=== PATIENT | female | born 1995 | race Caucasian/White ===

== ENCOUNTER 2016-12-03 16:49 | Emergency (ER) | payer BC ==
[~2016-12-03] VITALS: Ht 160 cm; Wt 105.0 kg
[2016-12-03 16:50] VITALS: BP 122/63; PULSE 69; RESP 16; TEMP 97.9; O2SAT 100
[2016-12-03 22:26] LABS: AUTOMATED NEUTROPHIL # 4.2 TH/MM3 (1.8-7.7); BASOPHIL % 0.3 % (0.0-2.0); EOSINOPHIL # 0.1 TH/MM3 (0-0.4); EOSINOPHIL % 1.8 % (0.0-4.0); HEMATOCRIT 41.4 % (35.0-46.0); HEMO FLAGS DIFF FINAL; LYMPH % 32.6 % (9.0-44.0); LYMPHOCYTE # 2.6 TH/MM3 (1.0-4.8); MEAN CELL VOLUME 86.7 FL (80.0-100.0); MEAN CORPUSCULAR HEMOGLOBIN 28.5 PG (27.0-34.0); MEAN CORPUSCULAR HGB CONC 32.9 % (32.0-36.0); MONO % 12.2 % (0.0-8.0); NEUT % 53.1 % (16.0-70.0); PLATELET COUNT 256 TH/MM3 (150-450); RED BLOOD COUNT 4.78 MIL/MM3 (4.00-5.30); RED CELL DISTRIBUTION WIDTH 13.6 % (11.6-17.2)
[2016-12-03 22:43] VITALS: BP 112/68; PULSE 62; RESP 16; O2SAT 100
[2016-12-03 22:43] LABS: ANION GAP 5 MEQ/L (5-15); AST (GOT) 25 U/L (16-38); BICARBONATE 30.1 MEQ/L (21.0-32.0); BLOOD UREA NITROGEN 11 MG/DL (7-18); CHLORIDE 104 MEQ/L (98-107); GLOMERULAR FILTRATION RATE 89 ML/MIN (>89); POTASSIUM 4.3 MEQ/L (3.5-5.1); SODIUM (NA) 139 MEQ/L (136-145)
[2016-12-03 22:46] LABS: ALKALINE PHOSPHATASE 46 U/L (45-117); ALT (GPT) 33 U/L (9-42); TOTAL BILIRUBIN ADULT 0.4 MG/DL (0.2-1.0)
[2016-12-03 23:07] LABS: BLOOD, URINE NEG (NEG); COMMENT (UR) CULT NOT INDICATED; CULTURE IF INDICATED CULT NOT INDICATED; GLUCOSE,URINE NEG (NEG); KETONE, URINE 10 mg/dL (NEG); MUCUS URINE FEW /lpf (OCC); NITRITE,URINE NEG (NEG); PH, URINE 5.5 (5.0-8.5); SQUAMOUS EPITHELIAL CELL URINE 2 /hpf (0-5); URINE COLOR YELLOW (YELLW/STRAW)
[2016-12-03] MEDS ORDERED: ALUMINUM/MAGNESIUM/SIMETH 30 ML CUP PO ONE (23:15)
[2016-12-03] MEDS ORDERED: LIDOCAINE VISCOUS 2% SOLN 15 ML UDC PO ONE (23:15)
[2016-12-03] MEDS ORDERED: ONDANSETRON ODT 4 MG TAB PO ONE (23:15)
--- NOTE | 2016-12-04 00:01 | PD ---
HPI Chief Complaint: Abdominal Pain Time Seen by Provider: 22:57 Travel History International Travel<30 days: No Contact w/Intl Traveler<30days: No Traveled to known affect area: No History of Present Illness HPI 21yo F with c/o epigastric abdominal pain for 1 month. States it is intermittent and nonradiating. Feels like contractions. Denies any fever, chest pain, sob, n/v, diarrhea, urinary complaints, vaginal bleeding or discharge. Pt sometimes takes ibuprofen but did not take it today. PFSH Past Medical History Medical other: Yes (SLEEP APNEA/INSOMNIA) Immunizations Current: Yes Tetanus Vaccination: > 5 Years Influenza Vaccination: No ?: Unknown LMP: 11/24/16 : 0 Social History Alcohol Use: No Tobacco Use: No Substance Use: Yes (MARIJUANA RARE) Allergies-Medications (Allergen,Severity, Reaction): Coded Allergies: No Known Allergies (Unverified , 12/03/16) Reported Meds & Prescriptions Reported Meds & Active Scripts Active No Active Prescriptions or Reported Medications Review of Systems Except as stated in HPI: all other systems reviewed are Neg Physical Exam Narrative GENERAL: 21yo F not in distress. SKIN: Focused skin assessment warm/dry. HEAD: Atraumatic. Normocephalic. CARDIOVASCULAR: Regular rate and rhythm. No murmur appreciated. RESPIRATORY: No accessory muscle use. Clear to auscultation. Breath sounds equal bilaterally. GASTROINTESTINAL: Abdomen soft, non-tender, nondistended. No rebound tenderness or guarding. BACK: No CVA tenderness bilaterally. MUSCULOSKELETAL: No obvious deformities. No clubbing. No cyanosis. No edema. NEUROLOGICAL: Awake and alert. No obvious cranial nerve deficits. Motor grossly within normal limits. Normal speech. PSYCHIATRIC: Appropriate mood and affect; insight and judgment normal. Data Data Last Documented VS Vital Signs Date Time Temp Pulse Resp B/P Pulse Ox O2 Delivery O2 Flow Rate FiO2 12/03/16 22:43 62 16 112/68 100 Room Air 12/03/16 16:50 97.9 Orders Complete Blood Count With Diff (12/03/16 21:04) Comprehensive Metabolic Panel (12/03/16 21:04) Urinalysis - C+S If Indicated (12/03/16 21:04) Lipase (12/03/16 21:04) Ed Urine Pregnancytest Poc (12/03/16 23:01) Al-Mag Hy-Si 40-40-4 Mg/Ml Liq (Mag-Al P (12/03/16 23:15) Lidocaine 2% Viscous (Xylocaine 2% Visco (12/03/16 23:15) Ondansetron Odt (Zofran Odt) (12/03/16 23:15) Labs Laboratory Tests Test 12/03/16 12/03/16 21:50 22:17 White Blood Count 8.0 TH/MM3 Red Blood Count 4.78 MIL/MM3 Hemoglobin 13.6 GM/DL Hematocrit 41.4 % Mean Corpuscular Volume 86.7 FL Mean Corpuscular Hemoglobin 28.5 PG Mean Corpuscular Hemoglobin 32.9 % Concent Red Cell Distribution Width 13.6 % Platelet Count 256 TH/MM3 Mean Platelet Volume 8.6 FL Neutrophils (%) (Auto) 53.1 % Lymphocytes (%) (Auto) 32.6 % Monocytes (%) (Auto) 12.2 % Eosinophils (%) (Auto) 1.8 % Basophils (%) (Auto) 0.3 % Neutrophils # (Auto) 4.2 TH/MM3 Lymphocytes # (Auto) 2.6 TH/MM3 Monocytes # (Auto) 1.0 TH/MM3 Eosinophils # (Auto) 0.1 TH/MM3 Basophils # (Auto) 0.0 TH/MM3 CBC Comment DIFF FINAL Differential Comment Sodium Level 139 MEQ/L Potassium Level 4.3 MEQ/L Chloride Level 104 MEQ/L Carbon Dioxide Level 30.1 MEQ/L Anion Gap 5 MEQ/L Blood Urea Nitrogen 11 MG/DL Creatinine 0.82 MG/DL Estimat Glomerular Filtration 89 ML/MIN Rate Random Glucose 93 MG/DL Calcium Level 9.2 MG/DL Total Bilirubin 0.4 MG/DL Aspartate Amino Transf 25 U/L (AST/SGOT) Alanine Aminotransferase 33 U/L (ALT/SGPT) Alkaline Phosphatase 46 U/L Total Protein 7.5 GM/DL Albumin 3.8 GM/DL Lipase 83 U/L Urine Color YELLOW Urine Turbidity CLEAR Urine pH 5.5 Urine Specific [place] 1.021 Urine Protein NEG mg/dL Urine Glucose (UA) NEG mg/dL Urine Ketones 10 mg/dL Urine Occult Blood NEG Urine Nitrite NEG Urine Bilirubin NEG Urine Urobilinogen LESS THAN 2.0 MG/DL Urine Leukocyte Esterase NEG Urine RBC LESS THAN 1 /hpf Urine WBC 1 /hpf Urine Squamous Epithelial 2 /hpf Cells Urine Mucus FEW /lpf Microscopic Urinalysis Comment CULT NOT INDICATED MDM Medical Decision Making Medical Screen Exam Complete: Yes Emergency Medical Condition: Yes Interpretation(s) Laboratory Tests Test 12/03/16 12/03/16 21:50 22:17 White Blood Count 8.0 TH/MM3 (4.0-11.0) Red Blood Count 4.78 MIL/MM3 (4.00-5.30) Hemoglobin 13.6 GM/DL (11.6-15.3) Hematocrit 41.4 % (35.0-46.0) Mean Corpuscular Volume 86.7 FL (80.0-100.0) Mean Corpuscular Hemoglobin 28.5 PG (27.0-34.0) Mean Corpuscular Hemoglobin 32.9 % Concent (32.0-36.0) Red Cell Distribution Width 13.6 % (11.6-17.2) Platelet Count 256 TH/MM3 (150-450) Mean Platelet Volume 8.6 FL (7.0-11.0) Neutrophils (%) (Auto) 53.1 % (16.0-70.0) Lymphocytes (%) (Auto) 32.6 % (9.0-44.0) Monocytes (%) (Auto) 12.2 % (0.0-8.0) Eosinophils (%) (Auto) 1.8 % (0.0-4.0) Basophils (%) (Auto) 0.3 % (0.0-2.0) Neutrophils # (Auto) 4.2 TH/MM3 (1.8-7.7) Lymphocytes # (Auto) 2.6 TH/MM3 (1.0-4.8) Monocytes # (Auto) 1.0 TH/MM3 (0-0.9) Eosinophils # (Auto) 0.1 TH/MM3 (0-0.4) Basophils # (Auto) 0.0 TH/MM3 (0-0.2) CBC Comment DIFF FINAL Differential Comment Sodium Level 139 MEQ/L (136-145) Potassium Level 4.3 MEQ/L (3.5-5.1) Chloride Level 104 MEQ/L (98-107) Carbon Dioxide Level 30.1 MEQ/L (21.0-32.0) Anion Gap 5 MEQ/L (5-15) Blood Urea Nitrogen 11 MG/DL (7-18) Creatinine 0.82 MG/DL (0.50-1.00) Estimat Glomerular Filtration 89 ML/MIN (>89) Rate Random Glucose 93 MG/DL (74-106) Calcium Level 9.2 MG/DL (8.5-10.1) Total Bilirubin 0.4 MG/DL (0.2-1.0) Aspartate Amino Transf 25 U/L (16-38) (AST/SGOT) Alanine Aminotransferase 33 U/L (9-42) (ALT/SGPT) Alkaline Phosphatase 46 U/L (45-117) Total Protein 7.5 GM/DL (6.4-8.2) Albumin 3.8 GM/DL (3.4-5.0) Lipase 83 U/L (73-393) Urine Color YELLOW (YELLW/STRAW) Urine Turbidity CLEAR (CLEAR) Urine pH 5.5 (5.0-8.5) Urine Specific [place] 1.021 (1.002-1.035) Urine Protein NEG mg/dL (NEG-TRACE) Urine Glucose (UA) NEG mg/dL (NEG) Urine Ketones 10 mg/dL (NEG) Urine Occult Blood NEG (NEG) Urine Nitrite NEG (NEG) Urine Bilirubin NEG (NEG) Urine Urobilinogen LESS THAN 2.0 MG/DL (LESS THAN 2.0) Urine Leukocyte Esterase NEG (NEG) Urine RBC LESS THAN 1 /hpf (0-3) Urine WBC 1 /hpf (0-5) Urine Squamous Epithelial 2 /hpf (0-5) Cells Urine Mucus FEW /lpf (OCC) Microscopic Urinalysis Comment CULT NOT INDICATED Differential Diagnosis Gastritis vs. peptic ulcer disease vs. pancreatitis Narrative Course 21yo F well appearing with intermittent epigastric abdominal pain for 1 month. Labs reviewed, no leukocytosis. CMP unremarkable. Lipase normal. UA showed no leukocyte. Negative nitrite. Urine negative. Abdominal exam unremarkable. Will give GI cocktail and reevaluate. VS stable. Pt reevaluated at bedside and pain has resolved. Return precautions given. Diagnosis Primary Impression: Abdominal pain Qualified Code: R10.13 - Epigastric pain Patient Instructions: General Instructions Departure Forms: Tests/Procedures Additional Instructions: Please follow up with your PMD in 3-7 days. Return to the ED if symptoms worsen. Med/Other Pt SpecificInfo: Prescription(s) given Scripts Omeprazole 40 Mg Cap40 Mg PO DAILY 7 Days Ref 0 Prov:Tete Jacob DO 12/04/16 Disposition: 01 DISCHARGE HOME Condition: Stable Tete Jacob DO Dec 04, 2016 00:01
[2016-12-04] MEDS ORDERED: OMEP40CA2 PO (00:47)
== END 2016-12-04 01:13 | disposition home or self-care (01) ==
LOC: NEPE 16:49
DX: R10.13 Epigastric pain (principal); G47.30 Sleep apnea, unspecified
CPT/HCPCS: 80053; 81001; 83690; 84703; 85025; 99284

== ENCOUNTER 2017-12-27 19:07 | Emergency (ER) | payer BC, OTHER ==
[~2017-12-27 19:07] MED LIST: OMEP40CA2 PO
--- NOTE | 2017-12-27 20:10 | PD ---
HPI Chief Complaint abdominal pain Date Seen: Dec 27, 2017 Time Seen: 20:04 Travel History International Travel<30 Days: No Contact w/Intl Traveler<30Days: No Known Affected Area: No History of Present Illness HPI pt. is a 22 @ 17 1/7 weeks w/ c/o lower abdominal pain. pt. states pain is dull and began ~ 1100 and persisted thruout the day. pt. states took tylenol w/ some relief. pt. w/ some morning sickness, but no other n/v, nl bm, voiding w/o diff, no fever chills, no vb/lof, no cramping. Weeks Gestation: 17 Para: 0 : 1 Last Menstrual Period: Dec 27, 2017 History Past Medical History Medical History: Denies Significant Hx Obstetric History Obstetric History Past Surgical History Surgical History: No Previous Surgery Family History Family History: Negative Social History Alcohol Use: No Tobacco Use: No Substance Abuse: Yes (+ marijuana) Allergies-Medications (Allergen,Severity, Reaction): Coded Allergies: No Known Allergies (Unverified , 12/03/16) Home Meds Active Scripts Omeprazole (Omeprazole) 40 Mg Cap, 40 MG PO DAILY for 7 Days, CAP 0 Refills Prov:Tete Jacob DO 12/04/16 Review of Systems Except as stated in HPI: all other systems reviewed are Neg Physical Exam Narrative GENERAL: Well-nourished, well-developed patient. SKIN: Warm and dry. HEAD: Normocephalic and atraumatic. EYES: No scleral icterus. No injection or drainage. ENT: No nasal drainage noted. Mucous membranes pink. Airway patent. NECK: Supple, trachea midline. No JVD. CARDIOVASCULAR: Regular rate and rhythm without murmurs, gallops, or rubs. RESPIRATORY: Breath sounds equal bilaterally. No accessory muscle use. BREASTS: Bilateral exam showed no masses , no retractions, no nipple discharge. ABDOMEN/GI: Abdomen soft, non-tender, bowel sounds present, no rebound, no guarding Uterine Contractions: none FHT's: + EXTREMITIES: No cyanosis or edema. BACK: Nontender without obvious deformity. No CVA tenderness. NEUROLOGICAL: Awake and alert. Motor and sensory grossly within normal limits. Five out of 5 muscle strength in all muscle groups. Normal speech. Data Data Vital Signs Reviewed: Yes Orders Orders Warehouse Associate Clear For Discharge (12/27/17 ) [facility] Medical Record Reviewed: Yes Plan pt. to be d/c to home. 1st visit 01/05, pt. to keep it. condition d/w pt. all ? answered. given precautions for return. Diagnosis Diagnosis: Primary Impression: Abdominal pain during in second trimester Additional Impression: 17 weeks gestation of Disposition: 01 DISCHARGE HOME Patient Instructions: General Instructions Departure Forms: Tests/Procedures Brenden Huynh Jr., MD Dec 27, 2017 20:10
== END 2017-12-27 20:15 | disposition home or self-care (01) ==
LOC: HOBED 19:07
DX: O26.892 Other specified pregnancy related conditions, second trimester (principal); R10.9 Unspecified abdominal pain; Z3A.17 17 weeks gestation of pregnancy
CPT/HCPCS: 99283

== ENCOUNTER → 2018-01-20 | Outpatient (CLI) | payer OTHER | LOC: HPND 08:19 | PROVIDERS: ATTEND Obstetrics & Gynecology | DX: O35.1XX0 Maternal care for (suspected) chromosomal abnormality in fetus, not applicable or unspecified (principal); E66.01 Morbid (severe) obesity due to excess calories; Z68.41 Body mass index [BMI] 40.0-44.9, adult | CPT/HCPCS: 76811 ==

== ENCOUNTER → 2018-02-25 | Outpatient (CLI) | payer OTHER | LOC: HPND 13:01 | PROVIDERS: ATTEND Obstetrics & Gynecology | DX: O35.1XX0 Maternal care for (suspected) chromosomal abnormality in fetus, not applicable or unspecified (principal); O99.212 Obesity complicating pregnancy, second trimester; E66.01 Morbid (severe) obesity due to excess calories; Z68.41 Body mass index [BMI] 40.0-44.9, adult | CPT/HCPCS: 76816 ==

== ENCOUNTER 2018-05-11 23:11 | Inpatient (IN) ==
--- NOTE | 2018-05-11 23:58 | P.HPOB ---
History of Present Illness Primary Care Physician: UNKNOWN Chief Complaint: leaking History of Present Illness: leaking since this evening no contractions no vb +fm PMFSH - Medical History Medical History: Medical History (Last Updated 05/11/18 @ 23:51 by Lois Pabon MD) Patient denies medical problems - Surgical History Surgical History: Surgical History (Last Updated 05/11/18 @ 23:51 by Lois Pabon MD) No history of previous surgery Medications and Allergies Allergies Allergy/AdvReac Type Severity Reaction Status Date / Time No Known Allergies Allergy Uncoded 12/03/16 22:39 Exam Vital signs: Vital Signs 05/11/18 23:38 Temperature 98.9 F Pulse Rate 95 H Respiratory Rate 18 Blood Pressure 146/78 H Narrative: GENERAL: Well-nourished, well-developed patient. SKIN: Warm and dry. HEAD: Normocephalic and atraumatic. EYES: No scleral icterus. No injection or drainage. ENT: No nasal drainage noted. Mucous membranes pink. Airway patent. NECK: Supple, trachea midline. No JVD. CARDIOVASCULAR: Regular rate and rhythm without murmurs, gallops, or rubs. RESPIRATORY: Breath sounds equal bilaterally. No accessory muscle use. BREASTS: Bilateral exam showed no masses , no retractions, no nipple discharge. ABDOMEN/GI: Abdomen soft, non-tender, bowel sounds present, no rebound, no guarding Gravid to - weeks size Fundal Height: - GENITOURINARY: External Genitalia: intact and normal in appearance BUS glands: - Cervix: Dilatation: 70 Effacement: 70 Station: -2 Presentation: [-] Membranes: [intact or ruptured] Uterine Contractions: [-] FHT's: Category: [-] Baseline: [-] Reactive: [-] Variability: [-] Decels: [-] EXTREMITIES: No cyanosis or edema. BACK: Nontender without obvious deformity. No CVA tenderness. NEUROLOGICAL: Awake and alert. Motor and sensory grossly within normal limits. Five out of 5 muscle strength in all muscle groups. Normal speech. Caprini VTE Risk Assessment Caprini VTE Risk Assessment: No/Low Risk (score <= 1) Caprini Risk Assessment Model: Point Value = 1 Point Value = 2 Point Value = 3 Point Value = 5 Age 41-60 Minor surgery BMI > 25 kg/m2 Swollen legs Varicose veins or History of unexplained or recurrent spontaneous Oral contraceptives or hormone replacement Sepsis (< 1 month) Serious lung disease, including pneumonia (< 1 month) Abnormal pulmonary function Acute myocardial infarction Congestive heart failure (< 1 month) History of inflammatory bowel disease Medical patient at bed rest Age 61-74 Arthroscopic surgery Major open surgery (> 45 min) Laparoscopic surgery (> 45 min) Malignancy Confined to bed (> 72 hours) Immobilizing plaster cast Central venous access Age >= 75 History of VTE Family history of VTE Factor V Leiden Prothrombin [id number] Lupus anticoagulant Anticardiolipin antibodies Elevated serum homocysteine Heparin-induced thrombocytopenia Other congenital or acquired thrombophilia Stroke (< 1 month) Elective arthroplasty Hip, pelvis, or leg fracture Acute spinal cord injury (< 1 month) Prophylaxis Regimen: Total Risk Factor Score Risk Level Prophylaxis Regimen 0-1 Low Early ambulation 2 Moderate Order ONE of the following: *Sequential Compression Device (SCD) *Heparin 5000 units SQ BID 3-4 Higher Order ONE of the following medications: *Heparin 5000 units SQ TID *Enoxaparin/Lovenox 40 mg SQ daily (WT < 150 kg, CrCl > 30 mL/min) *Enoxaparin/Lovenox 30 mg SQ daily (WT < 150 kg, CrCl > 10-29 mL/min) *Enoxaparin/Lovenox 30 mg SQ BID (WT < 150 kg, CrCl > 30 mL/min) AND/OR *Sequential Compression Device (SCD) 5 or more Highest Order ONE of the following medications: *Heparin 5000 units SQ TID (Preferred with Epidurals) *Enoxaparin/Lovenox 40 mg SQ daily (WT < 150 kg, CrCl > 30 mL/min) *Enoxaparin/Lovenox 30 mg SQ daily (WT < 150 kg, CrCl > 10-29 mL/min) *Enoxaparin/Lovenox 30 mg SQ BID (WT < 150 kg, CrCl > 30 mL/min) AND *Sequential Compression Device (SCD) Assessment and Plan - Plan IUP @ 37 5/7 weeks PROM - admit for pitocin augmentation EFW [id number] by US weight gain 50lbs on thursday he 5'4" nulliparous I discussed the risk factors for shoulder dystocia with the patient. She verbalizes a through understanding and desires to proceedw tih vaginal delivery.
[2018-05-12] MEDS ORDERED: Sod Chloride 0.9% Inj 1,000 ML IV.CONT PRN
[2018-05-12] MEDS ORDERED: Citric Acid/Sodium Citrate Liq 30 ML UDC PO SCH
[2018-05-12] MEDS ORDERED: Penicillin G Potassium Inj 5,000,000 UNIT in Sodium Chloride 0.9% Inj 100 ML IV.SIG ONE ×2
[2018-05-12] MEDS ORDERED: Oxytocin 30 Units/500ml Premix 30 UNITS/500 ML BAG IV.SIG ONE
[2018-05-12] MEDS ORDERED: fentaNYL Citrate Inj 100 MCG/2 ML Ampul IV.PUSH PRN ×2
[2018-05-12] MEDS ORDERED: Sodium Chlor 0.9% Inj 500 ML IV.SIG PRN
[2018-05-12 01:36] LABS: Baso % (Auto) 0.2 % (0.0-2.0); Eos # (Auto) 0.2 th/mm3 (0.0-0.4); Eos % (Auto) 1.1 % (0.0-4.0); Hematocrit 34.5 % (35.0-46.0); Hemoglobin 11.5 gm/dL (11.6-15.3); Lymph # (Auto) 1.8 th/mm3 (1.0-4.8); Lymph % (Auto) 12.3 % (9.0-44.0); Mean Corpuscular HGB Conc 33.4 % (32.0-36.0); Mean Corpuscular Volume 83.8 fL (80.0-100.0); Mean Platelet Volume 9.4 fL (7.0-11.0); Mono # (Auto) 1.2 th/mm3 (0.0-0.9); Mono % (Auto) 7.9 % (0.0-8.0); Neut # (Auto) 11.8 th/mm3 (1.8-7.7); Neut % (Auto) 78.5 % (16.0-70.0); Platelet Count 315 th/mm3 (150-450); Red Blood Count 4.12 mil/mm3 (4.00-5.30); Red Cell Distribution Width 13.3 % (11.6-17.2)
[2018-05-12 01:46] LABS: Amphetamine Urine With Conf Neg (Neg); Benzodiazepine Urine With Conf Neg (Neg)
[2018-05-12 02:01] LABS: Bilirubin,Urine Negative (Negative); Clarity,Urine Cloudy (Clear); Color,Urine Yellow (Yellw/Straw); Glucose,Urine (UA) Negative (Negative); Leukocyte Esterase,Urine Negative (Negative); Mucus,Urine Moderate /lpf (Occasional); Nitrite,Urine Negative (Negative); Specific Gravity,Urine 1.021 (1.002-1.035); Squamous Epithelial Cell,Urine 12 /hpf (0-5)
[2018-05-12] MEDS: Penicillin G Potassium Inj 2,500,000 UNIT in Sodium Chlor 0.9% Inj 100 ML IV.SIG SCH ×4 (05:30→13:14)
[2018-05-12] MEDS ORDERED: Oxytocin 30 Units/500ml Premix 30 UNITS/500 ML BAG IV.SIG PRN (07:44)
[2018-05-12] MEDS ORDERED: fentaNYL 2MCG-Bupiv 0.125% Epi 150 ML EPIDURAL ONE (08:23)
[2018-05-12] MEDS ORDERED: Lidocaaine 1.5%/Epinephrine 1:200,000 PF Inj 5 ML Amp ONE (08:46)
[2018-05-12] MEDS ORDERED: Lidocaine PF 1% Inj 5 ML Vial ONE (08:46)
[2018-05-12] MEDS ORDERED: fentaNYL Citrate Inj 100 MCG/2 ML Ampul EPIDURAL ONE (11:00)
[2018-05-12] MEDS ORDERED: fentaNYL 2MCG-Bupiv 0.125% Epi 150 ML EPIDURAL PRN (11:00)
[2018-05-12] MEDS ORDERED: Lidocaine PF 1% Inj 30 ML Vial ONE (14:19)
[2018-05-12] MEDS ORDERED: Benzocaine 20% Top Spray 60 ML Can TOPICAL PRN (15:33)
[2018-05-12] MEDS ORDERED: Naloxone Inj 0.4 MG/ML Vial IV.PUSH PRN ×2 (15:33)
[2018-05-12] MEDS ORDERED: Bisacodyl 10 MG Supp RECTAL PRN (15:33)
[2018-05-12] MEDS ORDERED: Oxytocin 30 Units/500ml Premix 30 UNITS/500 ML BAG IV.CONT PRN (15:33)
[2018-05-12] MEDS ORDERED: Zolpidem Tartrate 5 MG Tablet PO PRN (15:33)
--- NOTE | 2018-05-12 15:36 | P.OBDELI ---
Weeks Gestation: 38 Anesthesia: Epidural Episiotomy: none Vaginal Delivery: Normal Presentation: Occiput posterior Nuchal Cord: x1 Delayed Cord Clamping (45 sec): Yes Placenta: Spontaneous delivery Laceration: Perineal, 2 deg Repair: Chromic running, Vicryl running Estimated blood loss (mL): 200 Infant: Female Female A Infant Delivery Date: 05/12/18 Delivery Time: 14:59 Weight: 3.12 kg score (1 min): 8 score (5 min): 9 Additional Information: loose nuchal reduced
[2018-05-12] MEDS ORDERED: Measles/Mumps/Rubella Vaccine Inj 0.5 ML Vial SQ ONE (16:00)
[2018-05-12] MEDS ORDERED: Diphtheria/Tetanus/Pertussis Vaccine Inj 0.5 ML Syringe IM ONE (16:00)
[2018-05-12] MEDS: Senna/Docusate Sodium 8.6/50 MG Tablet PO SCH (20:34)
--- NOTE | 2018-05-13 08:33 | P.PNOB ---
Subjective Interval history: Patient is a 23 year-old delivered at 37 weeks. Patient is day 1 after . AFVSS. Patient's pain is well-controlled. Patient reports eating and drinking without any nausea or vomiting. Patient reports minimal bleeding. Patient has not passed gas and had no bowel movements. Patient is walking without lower extremity pain or shortness of breath. Patient reports desire for contraception and breast-feeding. Objective Vital Signs/I&O: Vital Signs 05/12/18 08:40 05/12/18 08:41 05/12/18 09:00 Temperature Pulse Rate 74 79 Respiratory Rate 18 18 Blood Pressure 132/76 143/92 H 05/12/18 09:06 05/12/18 09:10 05/12/18 09:30 Temperature Pulse Rate 90 82 87 Respiratory Rate 18 18 Blood Pressure 106/89 120/65 05/12/18 09:45 05/12/18 09:46 05/12/18 10:00 Temperature Pulse Rate 84 79 Respiratory Rate 18 18 Blood Pressure 127/60 122/61 05/12/18 10:01 05/12/18 10:16 05/12/18 10:45 Temperature 98.0 F Pulse Rate 129 H 75 Respiratory Rate 18 Blood Pressure 102/60 125/69 05/12/18 10:46 05/12/18 11:16 05/12/18 15:46 Temperature Pulse Rate 73 85 94 H Respiratory Rate Blood Pressure 128/75 136/81 129/74 05/12/18 16:16 05/12/18 16:31 05/12/18 16:46 Temperature Pulse Rate 73 76 74 Respiratory Rate Blood Pressure 133/70 131/73 134/73 Intake & Output 05/12/18 05/13/18 05/13/18 18:59 06:59 18:59 Intake Total 2099 / 2099 Balance 2099 Intake: IV 2099 / 2099 LR 1000 mL Inj 1,000 ML @ 125 2000 / 2000 mls/hr IV.CONT .Q8H [place] Rx#: [id number] Pfizerpen-G Inj 2,500,000 UNIT 100 / 100 In NS Inj 100 ML @ 200 mls/hr IV.SIG Q4H [place] Rx#:[id number] Result Diagrams: 05/12/18 00:50 Objective Remarks: GENERAL: Well-nourished, well-developed patient. CARDIOVASCULAR: Regular rate and rhythm without murmurs, gallops, or rubs. RESPIRATORY: Breath sounds equal bilaterally. No accessory muscle use. ABDOMEN/GI: Abdomen soft, non-tender. Fundus: Firm, non-tender at umbilicus. GENITOURINARY: Light to moderate bleeding. EXTREMITIES: No cyanosis or edema, non-tender, without signs of DVT. Medications and IVs: Active Medications Acetaminophen (Tylenol) 650 mg PO Q4H PRN PRN Reason: PAIN SCALE 1 TO 2 Al Hydroxide/Mg Hydroxide (Milk Of Magnesia Liq) 30 ml PO Q12H PRN PRN Reason: Mild Constipation Benzocaine (Americaine 20% [place]) 1 spray TOPICAL Q4H PRN PRN Reason: For Perineum Discomfort Bisacodyl (Dulcolax Supp) 10 mg RECTAL DAILY PRN PRN Reason: SEVERE CONSITIPATION Ephedrine Sulfate (Ephedrine/Ns Syringe) 10 mg IV.PUSH UNSCH PRN PRN Reason: SEE LABEL COMMENTS Stop: 05/13/18 11:00 Oxytocin (Pitocin 30 Units/Ns 500 Ml Premix) 30 units in 500 mls @ 2 mls/hr IV.SIG TITRATE PRN; Protocol PRN Reason: For induction of labor Last Admin: 05/12/18 08:35 Dose: 2 milliunit/min, 2 mls/hr Fentanyl/Bupivacaine/Sodium Chlor (Fentanyl 2 Mcg-Bupiv 0.125% Epi) 150 mls @ 12 mls/hr EPIDURAL UNSCH PRN PRN Reason: for Labor Pain Last Admin: 05/12/18 13:14 Dose: 12 mls/hr Oxytocin (Pitocin 30 Units/Ns 500 Ml Premix) 30 units in 500 mls @ 100 mls/hr IV.CONT UNSCH PRN PRN Reason: Heavy bleeding Ibuprofen (Motrin) 800 mg PO Q8H PRN PRN Reason: For Cramping Last Admin: 05/13/18 06:15 Dose: 800 mg Lactulose (Lactulose Liq) 30 ml PO DAILY PRN PRN Reason: SEVERE CONSITIPATION Miscellaneous Information (Misc Information) 1 each OTHER UNSCH PRN PRN Reason: SEE LABEL COMMENTS Stop: 05/13/18 11:00 Miscellaneous Information (Misc Information) 1 each OTHER UNSCH PRN PRN Reason: SEE LABEL COMMENTS Stop: 05/13/18 11:00 Naloxone HCl (Narcan Inj) 0.1 mg IV.PUSH Q2M PRN PRN Reason: for opiate reversal Ondansetron HCl (Zofran Odt) 4 mg PO Q6H PRN PRN Reason: NAUSEA OR VOMITING Vit/Calcium/Iron/Folic Ac (Stuartnatal Plus 3) 1 tab PO DAILY [facility] Senna/Docusate Sodium (Izzy-Colace) 1 tab PO BID [facility] Last Admin: 05/12/18 20:34 Dose: 1 tab Sennosides (Senokot) 17.2 mg PO Q12H PRN PRN Reason: Moderate Constipation Sodium Chloride (Ns Flush) 2 ml IV.FLUSH BID [facility] Last Admin: 05/13/18 06:15 Dose: 2 ml Sodium Chloride (Ns Flush) 2 ml IV.FLUSH UNSCH PRN PRN Reason: FLUSH AFTER USING IV ACCESS Witch Gerda/Glycerin (Tucks Pads) 1 applicatio RECTAL QID PRN PRN Reason: HEMORRHOIDS Zolpidem Tartrate (Ambien) 5 mg PO HS PRN PRN Reason: SLEEP Assessment and Plan - Plan Patient is a 23 year-old delivered at 37 weeks. Patient is day 1 after . Continue routine care. Motrin and Percocet when necessary for pain. Encourage OOB Pelvic rest for 6 weeks will need follow-up appointment at that time. appropriately. Anticipate discharge tomorrow Discussed with Dr. Graff .
[2018-05-13] MEDS: Witch Hazel 50%/Glyderin 12.5% 40 Pad Jar RECTAL PRN ×2 (08:37→20:21)
[2018-05-13] MEDS: Senna/Docusate Sodium 8.6/50 MG Tablet PO SCH ×2 (08:37→20:21)
[2018-05-13] MEDS: Prenatal Vit/Ca/Iron/Folic Acid Tablet PO SCH (08:37)
[2018-05-13] MEDS: Acetaminophen 325 MG Tablet PO PRN (20:24)
[2018-05-14] MEDS: Acetaminophen 325 MG Tablet PO PRN (02:33)
[2018-05-14] MEDS: Senna/Docusate Sodium 8.6/50 MG Tablet PO SCH (08:45)
[2018-05-14] MEDS: Prenatal Vit/Ca/Iron/Folic Acid Tablet PO SCH (08:45)
--- NOTE | 2018-05-14 09:12 | P.PNOB ---
Subjective Interval history: Patient is a 23 year-old delivered at 37 weeks. Patient is day 2 after . AFVSS. Patient's pain is well-controlled. Patient reports eating and drinking without any nausea or vomiting. Patient reports minimal bleeding. Patient has passed gas and had bowel movements. Patient is walking without lower extremity pain or shortness of breath. Patient reports desire for contraception and breast-feeding. She is ready to be discharged today. Objective Result Diagrams: 05/12/18 00:50 Objective Remarks: GENERAL: Well-nourished, well-developed patient. CARDIOVASCULAR: Regular rate and rhythm without murmurs, gallops, or rubs. RESPIRATORY: Breath sounds equal bilaterally. No accessory muscle use. ABDOMEN/GI: Abdomen soft, non-tender. Fundus: Firm, non-tender at umbilicus. GENITOURINARY: Light to moderate bleeding. EXTREMITIES: No cyanosis or edema, non-tender, without signs of DVT. Medications and IVs: Active Medications Acetaminophen (Tylenol) 650 mg PO Q4H PRN PRN Reason: PAIN SCALE 1 TO 2 Last Admin: 05/14/18 02:33 Dose: 650 mg Al Hydroxide/Mg Hydroxide (Milk Of Magnesia Liq) 30 ml PO Q12H PRN PRN Reason: Mild Constipation Benzocaine (Americaine 20% Top [place]) 1 spray TOPICAL Q4H PRN PRN Reason: For Perineum Discomfort Last Admin: 05/13/18 20:21 Dose: 1 spray Bisacodyl (Dulcolax Supp) 10 mg RECTAL DAILY PRN PRN Reason: SEVERE CONSITIPATION Oxytocin (Pitocin 30 Units/Ns 500 Ml Premix) 30 units in 500 mls @ 2 mls/hr IV.SIG TITRATE PRN; Protocol PRN Reason: For induction of labor Last Admin: 05/12/18 08:35 Dose: 2 milliunit/min, 2 mls/hr Fentanyl/Bupivacaine/Sodium Chlor (Fentanyl 2 Mcg-Bupiv 0.125% Epi) 150 mls @ 12 mls/hr EPIDURAL UNSCH PRN PRN Reason: for Labor Pain Last Admin: 05/12/18 13:14 Dose: 12 mls/hr Oxytocin (Pitocin 30 Units/Ns 500 Ml Premix) 30 units in 500 mls @ 100 mls/hr IV.CONT UNSCH PRN PRN Reason: Heavy bleeding Ibuprofen (Motrin) 800 mg PO Q8H PRN PRN Reason: For Cramping Last Admin: 05/14/18 02:33 Dose: 800 mg Lactulose (Lactulose Liq) 30 ml PO DAILY PRN PRN Reason: SEVERE CONSITIPATION Naloxone HCl (Narcan Inj) 0.1 mg IV.PUSH Q2M PRN PRN Reason: for opiate reversal Ondansetron HCl (Zofran Odt) 4 mg PO Q6H PRN PRN Reason: NAUSEA OR VOMITING Vit/Calcium/Iron/Folic Ac (Stuartnatal Plus 3) 1 tab PO DAILY [facility] Last Admin: 05/14/18 08:45 Dose: 1 tab Senna/Docusate Sodium (Izzy-Colace) 1 tab PO BID [facility] Last Admin: 05/14/18 08:45 Dose: 1 tab Sennosides (Senokot) 17.2 mg PO Q12H PRN PRN Reason: Moderate Constipation Sodium Chloride (Ns Flush) 2 ml IV.FLUSH BID [facility] Last Admin: 05/13/18 20:11 Dose: Not Given Sodium Chloride (Ns Flush) 2 ml IV.FLUSH UNSCH PRN PRN Reason: FLUSH AFTER USING IV ACCESS Witch Gerda/Glycerin (Tucks Pads) 1 applicatio RECTAL QID PRN PRN Reason: HEMORRHOIDS Last Admin: 05/13/18 20:21 Dose: 1 applicatio Zolpidem Tartrate (Ambien) 5 mg PO HS PRN PRN Reason: SLEEP Assessment and Plan - Plan Patient is a 23 year-old delivered at 37 weeks. Patient is day 2 after . Continue routine care. Motrin and Percocet when necessary for pain. Encourage OOB Pelvic rest for 6 weeks will need follow-up appointment at that time. appropriately. Anticipate discharge today. Discussed with Dr. Carreno.
== END 2018-05-14 15:45 | disposition home or self-care (01) ==
LOC: HOBED 23:11 → H2E 05-12 00:04 → H1EA 05-12 17:14
PROVIDERS: ADMIT Obstetrics & Gynecology; ATTEND Obstetrics & Gynecology